=== PATIENT | female | born 1980 | race Caucasian/White ===

== ENCOUNTER 2018-06-04 18:22 | Emergency (ER) | payer MEDICAID ==
[~2018-06-04] VITALS: Ht 160 cm; Wt 60.0 kg
[2018-06-04 18:25] VITALS: BP 110/62
== END 2018-06-04 19:12 | disposition left against medical advice (07) ==
LOC: ER 18:22
DX: R51 Headache (principal); Z53.21 Procedure and treatment not carried out due to patient leaving prior to being seen by health care provider